=== PATIENT | male | born 1950 | race African-American/Black ===

== ENCOUNTER 2016-08-15 12:12 | Inpatient (IN) | payer OTHER ==
[~2016-08-15] VITALS: Ht 177.8 cm; Wt 90.0 kg
[~2016-08-15 12:12] MED LIST: ASPI-449 PO; SIMV-13 PO
[2016-08-15 13:11] LABS: Hemoglobin 16.1 g/dL (13.5-17.5); Mean Corpuscular Hemoglobin 33.6 pg (28.0-32.0); Mean Corpuscular Hgb Conc. 33.6 g/dL (32.0-36.0); Mean Corpuscular Volume 100.1 fL (80.0-100.0); Mean Platelet Volume 8.8 fL (7.4-10.4); Platelet Count (auto) 139 10^3/uL (140-450); Red Cell Distribution Width 12.8 % (11.6-16.0); SUSPECT VIEW TRANSMISSION; White Blood Cell 12.7 10^3/uL (4.4-10.8)
[2016-08-15 13:16] LABS: Metamyelocytes % 0; Myelocytes % 0; Promyelocytes % 0; Reactive Lymphocytes 0
[2016-08-15] MEDS ORDERED: SODIUM CHLORIDE 0.9% 1,000 ML IVB ONE (13:29)
[2016-08-15] MEDS ORDERED: ONDANSETRON HCL 4 MG/2 ML VIAL IV ONE (13:30)
[2016-08-15 13:34] LABS: Albumin 3.2 g/dL (3.4-5.0); BUN/Creatinine Ratio 18.5; Bilirubin, Total 2.6 mg/dL (0.2-1.0); Calcium 8.3 mg/dL (8.5-10.1); Potassium 3.8 mmol/L (3.5-5.1); Total Protein 7.1 g/dL (6.4-8.2)
[2016-08-15 13:48] LABS: Giant Platelets Few; Platelet Estimate Decreased
[2016-08-15 14:07] LABS: Magnesium 2.2 mg/dL (1.6-2.6)
[2016-08-15 14:25] LABS: INR 1.03 (0.9-1.15); Prothrombin Time 11.1 sec (9.37-12.3)
[2016-08-15 15:36] LABS: Urine Bilirubin Negative (Negative); Urine Color Yellow (Yellow); Urine Glucose Normal (Normal); Urine Nitrite Negative (Negative); Urine RBC <1 /hpf (0 - 3); Urine pH 5.5 (5.0-8.0)
[2016-08-15 15:40] LABS: Urine Blood 1+ /uL (Negative); Urine Ketone 1+ (Negative)
[2016-08-15] MEDS ORDERED: TEMAZEPAM 15 MG CAP PO PRN (18:30)
[2016-08-15] MEDS ORDERED: HYDROcodone-ACET 5/325MG TAB PO PRN (18:30)
[2016-08-15] MEDS ORDERED: SODIUM CHLORIDE 0.9% 2,000 ML IV ONE (18:30)
[2016-08-15] MEDS ORDERED: MORPHINE SULF INJ 2 MG/ML SYRINGE 1ML IV PRN ×2 (18:30)
[2016-08-15] MEDS ORDERED: cefTRIAXone 1GM/50ML D5W 50 ML IV ONE (18:30)
[2016-08-15] MEDS ORDERED: NITROGLYCERIN 0.4 MG SL TAB SL PRN (18:30)
[2016-08-15] MEDS ORDERED: PROCHLORPERAZINE EDISYLATE 5 MG/ML 2ML VIAL IV PRN (18:30)
[2016-08-15] MEDS ORDERED: LORazepam 0.5 MG TAB PO PRN (18:30)
[2016-08-15] MEDS ORDERED: ACETAMINOPHEN 500 MG TAB PO PRN (18:30)
[2016-08-15] MEDS: FAMOTIDINE (10MG/ML) 2ML VL IV SCH (19:02)
[2016-08-15] MEDS: SODIUM CHLORIDE 0.9% 1,000 ML IV SCH (19:50)
[2016-08-15] MEDS: metroNIDAZOLE 500MG/100ML 100 ML IV SCH (20:00)
[2016-08-16] MEDS: metroNIDAZOLE 500MG/100ML 100 ML IV SCH ×4 (02:21→21:38)
[2016-08-16] MEDS: SODIUM CHLORIDE 0.9% 1,000 ML IV SCH ×4 (03:39→21:35)
[2016-08-16 04:06] LABS: Hematocrit 40.5 % (41.0-53.0); Hemoglobin 13.7 g/dL (13.5-17.5); Mean Corpuscular Hemoglobin 33.6 pg (28.0-32.0); Mean Corpuscular Hgb Conc. 33.7 g/dL (32.0-36.0); Mean Corpuscular Volume 99.7 fL (80.0-100.0); Mean Platelet Volume 9.1 fL (7.4-10.4); Platelet Count (auto) 131 10^3/uL (140-450); Red Cell Distribution Width 12.5 % (11.6-16.0); SUSPECT VIEW TRANSMISSION; White Blood Cell 15.5 10^3/uL (4.4-10.8)
[2016-08-16 04:13] LABS: Metamyelocytes % 0; Myelocytes % 0; Promyelocytes % 0; Reactive Lymphocytes 0
[2016-08-16 04:46] LABS: Albumin 2.5 g/dL (3.4-5.0); BUN/Creatinine Ratio 17.8; Bilirubin, Total 2.1 mg/dL (0.2-1.0); Calcium 7.2 mg/dL (8.5-10.1); Potassium 3.3 mmol/L (3.5-5.1); Total Protein 5.5 g/dL (6.4-8.2)
[2016-08-16 06:44] LABS: Platelet Estimate Decreased
[2016-08-16] MEDS: FAMOTIDINE (10MG/ML) 2ML VL IV SCH ×2 (06:56→18:48)
[2016-08-16] MEDS: cefTRIAXone 1GM/50ML D5W 50 ML IV SCH (08:39)
[2016-08-16] MEDS: ENOXAPARIN SOD 40 MG/0.4 ML SYRINGE SC SCH (10:03)
[2016-08-16] MEDS ORDERED: POTASSIUM CHLORIDE 20 MEQ, LIDOCAINE 1% (LOCAL ANESTH.) 2 ML in SODIUM CHL 0.9% 100 ML IV ONE (19:30)
[2016-08-16] MEDS ORDERED: POTASSIUM CHL 20MEQ/100ML 100 ML IV ONE (19:48)
[2016-08-16 23:54] VITALS: BP 90/41
[2016-08-17] VITALS (7 sets, daily range): BP systolic 89–112; BP diastolic 41–68
[2016-08-17] MEDS: metroNIDAZOLE 500MG/100ML 100 ML IV SCH ×2 (02:32→08:25)
[2016-08-17] MEDS: SODIUM CHLORIDE 0.9% 1,000 ML IV SCH (03:39)
[2016-08-17] MEDS: FAMOTIDINE (10MG/ML) 2ML VL IV SCH (05:19)
[2016-08-17 06:51] LABS: Hematocrit 35.6 % (41.0-53.0); Mean Corpuscular Hemoglobin 33.6 pg (28.0-32.0); Mean Corpuscular Hgb Conc. 33.7 g/dL (32.0-36.0); Mean Corpuscular Volume 99.8 fL (80.0-100.0); Mean Platelet Volume 9.2 fL (7.4-10.4); Platelet Count (auto) 144 10^3/uL (140-450); Red Cell Distribution Width 12.9 % (11.6-16.0); SUSPECT VIEW TRANSMISSION; White Blood Cell 15.4 10^3/uL (4.4-10.8)
[2016-08-17 06:59] LABS: Metamyelocytes % 0; Myelocytes % 0; Promyelocytes % 0; Reactive Lymphocytes 0
[2016-08-17 07:02] LABS: Potassium 3.6 mmol/L (3.5-5.1)
[2016-08-17 07:13] LABS: Albumin 2.2 g/dL (3.4-5.0); BUN/Creatinine Ratio 11.4; Bilirubin, Total 1.1 mg/dL (0.2-1.0); Calcium 7.3 mg/dL (8.5-10.1); Total Protein 5.1 g/dL (6.4-8.2)
[2016-08-17 08:05] LABS: Platelet Estimate Adequate; RBC Morphology Normal
[2016-08-17] MEDS: cefTRIAXone 1GM/50ML D5W 50 ML IV SCH (09:50)
[2016-08-17] MEDS: ENOXAPARIN SOD 40 MG/0.4 ML SYRINGE SC SCH (09:50)
[2016-08-18 05:37] LABS: Basophils # (auto) 0 uL; Eosinophils # (auto) 0.5 uL; Eosinophils % (auto) 5.2 % (0.0-7.0); Hematocrit 35.9 % (41.0-53.0); Lymphocytes # (auto) 1.2 uL; Lymphocytes % (auto) 11.3 % (10.0-50.0); Mean Corpuscular Hemoglobin 33.8 pg (28.0-32.0); Mean Corpuscular Hgb Conc. 33.5 g/dL (32.0-36.0); Mean Corpuscular Volume 100.9 fL (80.0-100.0); Mean Platelet Volume 8.9 fL (7.4-10.4); Monocytes # (auto) 0.8 uL; Monocytes % (auto) 7.9 % (0.0-12.0); Neutrophils # (auto) 7.9 uL; Neutrophils % (auto) 75.6 % (37.0-80.0); Platelet Count (auto) 193 10^3/uL (140-450); Red Cell Distribution Width 12.8 % (11.6-16.0); White Blood Cell 10.5 10^3/uL (4.4-10.8)
[2016-08-18 05:39] LABS: BUN/Creatinine Ratio 10.6; Calcium 7.6 mg/dL (8.5-10.1); Potassium 3.6 mmol/L (3.5-5.1)
[2016-08-18 05:41] LABS: Bilirubin, Total 0.7 mg/dL (0.2-1.0)
[2016-08-18 09:00] VITALS: BP 110/57
[2016-08-18 19:06] LABS: Sjogren's Anti-SS-A Antibody <0.2 AI (0.0-0.9)
== END 2016-08-18 11:15 | disposition home or self-care (01) | DRG 392 ==
LOC: ER 12:12 → TELE 12:13 → DOU IN ICU 08-16 23:17 → TELE-WESTW 08-17 14:25 → WEST WING 08-17 23:46
PROVIDERS: ADMIT Internal Medicine; ATTEND Internal Medicine
DX: K52.9 Noninfective gastroenteritis and colitis, unspecified (principal); N17.9 Acute kidney failure, unspecified; I95.9 Hypotension, unspecified; E86.0 Dehydration; E78.5 Hyperlipidemia, unspecified; F17.210 Nicotine dependence, cigarettes, uncomplicated; I25.10 Atherosclerotic heart disease of native coronary artery without angina pectoris; R21 Rash and other nonspecific skin eruption; D69.6 Thrombocytopenia, unspecified; K80.20 Calculus of gallbladder without cholecystitis without obstruction; R19.7 Diarrhea, unspecified; B19.20 Unspecified viral hepatitis C without hepatic coma; N18.9 Chronic kidney disease, unspecified; I12.9 Hypertensive chronic kidney disease with stage 1 through stage 4 chronic kidney disease, or unspecified chronic kidney disease; Z82.49 Family history of ischemic heart disease and other diseases of the circulatory system; Z83.3 Family history of diabetes mellitus; Z98.61 Coronary angioplasty status; I25.2 Old myocardial infarction; Z84.1 Family history of disorders of kidney and ureter; Z82.0 Family history of epilepsy and other diseases of the nervous system
CPT/HCPCS: 36415; 71010; 74176; 76705; 80048; 80053; 80061; 80074; 81001; 82150; 82247; 83516; 83690; 83735; 84443; 84550; 85007; 85025; 85027; 85610; 85652; 85730; 86141; 86225; 86235; 86703; 87400; 93005; 94761; 96361; 96374; J0696; J2001; J2405; J3480; J3490

== ENCOUNTER 2016-12-26 11:58 | Inpatient (IN) | payer OTHER ==
[~2016-12-26] VITALS: Ht 177.8 cm; Wt 95.3 kg
[2016-12-26] MEDS ORDERED: SODIUM CHLORIDE 0.9% 1,000 ML IV ONE (12:09)
[2016-12-26] MEDS ORDERED: LORazepam 2MG/ML-1ML VIAL IV ONE (12:15)
[2016-12-26] MEDS ORDERED: ONDANSETRON HCL 4 MG/2 ML VIAL IV ONE (12:15)
[2016-12-26 12:44] LABS: CONDITION Y; Hematocrit 46.8 % (41.0-53.0); Hemoglobin 16.1 g/dL (13.5-17.5); Mean Corpuscular Hemoglobin 34.4 pg (28.0-32.0); Mean Corpuscular Hgb Conc. 34.4 g/dL (32.0-36.0); Mean Corpuscular Volume 100.1 fL (80.0-100.0); Mean Platelet Volume 8.8 fL (7.4-10.4); Platelet Count (auto) 139 10^3/uL (140-450); Red Cell Distribution Width 12.5 % (11.6-16.0); SUSPECT SEE PRINTOUT; White Blood Cell 10.5 10^3/uL (4.4-10.8)
[2016-12-26 12:50] LABS: Metamyelocytes % 0; Myelocytes % 0; Promyelocytes % 0; Reactive Lymphocytes 0
[2016-12-26 13:00] LABS: Albumin 3.1 g/dL (3.4-5.0); BUN/Creatinine Ratio 20.5; Potassium 3.7 mmol/L (3.5-5.1)
[2016-12-26 13:03] LABS: Bilirubin, Total 2.5 mg/dL (0.2-1.0); Platelet Estimate Decreased; Total Protein 6.7 g/dL (6.4-8.2)
[2016-12-26] MEDS ORDERED: ACETAMINOPHEN 500 MG TAB PO PRN (14:00)
[2016-12-26] MEDS ORDERED: PROMETHAZINE HCL 25 MG/ML 1ML IV PRN (14:00)
[2016-12-26] MEDS ORDERED: TEMAZEPAM 15 MG CAP PO PRN (14:00)
[2016-12-26] MEDS ORDERED: LORazepam 0.5 MG TAB PO PRN (14:00)
[2016-12-26] MEDS ORDERED: MORPHINE SULF INJ 2 MG/ML SYRINGE 1ML IV PRN (14:00)
[2016-12-26] MEDS ORDERED: HYDROcodone-ACET 5/325MG TAB PO PRN (14:00)
[2016-12-26] MEDS ORDERED: MORPHINE SULFATE 4 MG/ML SYRG IV PRN (14:00)
[2016-12-26] MEDS ORDERED: NITROGLYCERIN 0.4 MG SL TAB SL PRN (14:00)
[2016-12-26] MEDS: SODIUM CHLORIDE 0.9% 1,000 ML IV SCH (14:25)
[2016-12-26] MEDS: PANTOPRAZOLE 40 MG TAB PO SCH (14:25)
[2016-12-26] MEDS: ENOXAPARIN SOD 40 MG/0.4 ML SYRINGE SC SCH (14:26)
[2016-12-26 14:29] LABS: Amylase 51 U/L (25-115)
[2016-12-26 15:03] VITALS: BP 72/49
[2016-12-26 15:12] VITALS: BP 100/56
[2016-12-26 15:32] VITALS: BP 72/49
[2016-12-26] MEDS ORDERED: ATOR20TA50 PO (15:53)
[2016-12-26] MEDS: ATORVASTATIN 20 MG TAB PO SCH (21:39)
[2016-12-26 22:00] VITALS: BP 102/56
[2016-12-26 23:45] LABS: Urine Bilirubin Negative (Negative); Urine Color Yellow (Yellow); Urine Glucose Normal (Normal); Urine Ketone Negative (Negative); Urine Mucus FEW (None Seen); Urine Nitrite Negative (Negative); Urine RBC 2 /hpf (0 - 3); Urine Squamous Epithelial Cell FEW /hpf (<5)
[2016-12-26 23:54] LABS: Urine Blood 1+ /uL (Negative)
[2016-12-27] MEDS: SODIUM CHLORIDE 0.9% 1,000 ML IV SCH ×3 (00:05→21:47)
[2016-12-27 05:00] VITALS: BP 101/53
[2016-12-27 05:36] LABS: Basophils # (auto) 0 uL; CONDITION Y; Eosinophils # (auto) 0.7 uL; Eosinophils % (auto) 5.5 % (0.0-7.0); Hematocrit 41.3 % (41.0-53.0); Lymphocytes % (auto) 7.7 % (10.0-50.0); Mean Corpuscular Hemoglobin 34.1 pg (28.0-32.0); Mean Corpuscular Hgb Conc. 33.9 g/dL (32.0-36.0); Mean Corpuscular Volume 100.6 fL (80.0-100.0); Mean Platelet Volume 9.2 fL (7.4-10.4); Monocytes # (auto) 0.5 uL; Monocytes % (auto) 4.2 % (0.0-12.0); Neutrophils # (auto) 10.3 uL; Neutrophils % (auto) 82.6 % (37.0-80.0); Platelet Count (auto) 129 10^3/uL (140-450); White Blood Cell 12.5 10^3/uL (4.4-10.8)
[2016-12-27 05:54] LABS: Albumin 2.5 g/dL (3.4-5.0); Potassium 3.5 mmol/L (3.5-5.1)
[2016-12-27 05:57] LABS: BUN/Creatinine Ratio 17.6; Calcium 7.4 mg/dL (8.5-10.1)
[2016-12-27 05:59] LABS: Bilirubin, Total 1.7 mg/dL (0.2-1.0); Total Protein 5.7 g/dL (6.4-8.2)
[2016-12-27 09:10] VITALS: BP 95/54
[2016-12-27] MEDS: cefTRIAXone 1GM/50ML D5W 50 ML IV SCH (09:37)
[2016-12-27] MEDS: ASPirin 81 mg TAB PO SCH (09:38)
[2016-12-27] MEDS: PANTOPRAZOLE 40 MG TAB PO SCH (09:39)
[2016-12-27] MEDS: ENOXAPARIN SOD 40 MG/0.4 ML SYRINGE SC SCH (09:39)
[2016-12-27] MEDS ORDERED: diphenhdrAMINE HCL 25 MG CAP PO PRN (10:00)
[2016-12-27] MEDS ORDERED: FAMOTIDINE (10MG/ML) 2ML VL IV ONE (11:45)
[2016-12-27 13:00] VITALS: BP 89/54
[2016-12-27 16:50] VITALS: BP 88/51
[2016-12-27] MEDS: ATORVASTATIN 20 MG TAB PO SCH (21:47)
[2016-12-27] MEDS: FAMOTIDINE (10MG/ML) 2ML VL IV SCH (21:48)
[2016-12-27 22:00] VITALS: BP 104/61
[2016-12-28 05:00] VITALS: BP 90/46
[2016-12-28 05:46] LABS: Basophils # (auto) 0 uL; Basophils % (auto) 0.1 % (0.0-2.0); CONDITION Y; Eosinophils # (auto) 0.6 uL; Eosinophils % (auto) 3.8 % (0.0-7.0); Hematocrit 37.3 % (41.0-53.0); Hemoglobin 12.8 g/dL (13.5-17.5); Lymphocytes % (auto) 6.1 % (10.0-50.0); Mean Corpuscular Hemoglobin 34.3 pg (28.0-32.0); Mean Corpuscular Hgb Conc. 34.3 g/dL (32.0-36.0); Mean Corpuscular Volume 99.9 fL (80.0-100.0); Mean Platelet Volume 9.1 fL (7.4-10.4); Monocytes # (auto) 0.4 uL; Monocytes % (auto) 2.4 % (0.0-12.0); Neutrophils # (auto) 13.8 uL; Neutrophils % (auto) 87.6 % (37.0-80.0); Platelet Count (auto) 143 10^3/uL (140-450); Red Cell Distribution Width 12.9 % (11.6-16.0); White Blood Cell 15.8 10^3/uL (4.4-10.8)
[2016-12-28 06:08] LABS: Albumin 2.4 g/dL (3.4-5.0); Calcium 7.5 mg/dL (8.5-10.1); Potassium 3.3 mmol/L (3.5-5.1)
[2016-12-28 06:10] LABS: Bilirubin, Total 1.6 mg/dL (0.2-1.0); Total Protein 5.3 g/dL (6.4-8.2)
[2016-12-28] MEDS: SODIUM CHLORIDE 0.9% 1,000 ML IV SCH ×3 (06:12→21:39)
[2016-12-28 09:00] VITALS: BP 100/52
[2016-12-28] MEDS: cefTRIAXone 1GM/50ML D5W 50 ML IV SCH (10:15)
[2016-12-28] MEDS: ENOXAPARIN SOD 40 MG/0.4 ML SYRINGE SC SCH (10:15)
[2016-12-28] MEDS: ASPirin 81 mg TAB PO SCH (10:15)
[2016-12-28] MEDS: FAMOTIDINE (10MG/ML) 2ML VL IV SCH ×2 (10:15→21:39)
[2016-12-28 10:32] LABS: Hepatitis B Surface Antibody Positive
[2016-12-28 11:12] LABS: Temperature: 23.3 C (20.0-25.0)
[2016-12-28 13:00] VITALS: BP 103/50
[2016-12-28] MEDS ORDERED: POTASSIUM CHL 20 Meq TABLET PO ONE (14:00)
[2016-12-28 15:38] LABS: INR 1.06 (0.9-1.15); Partial Thromboplastin Time 31.4 sec (22.64-33.71); Prothrombin Time 11.6 sec (9.37-12.3)
[2016-12-28 16:50] VITALS: BP 111/65
[2016-12-28] MEDS: ATORVASTATIN 20 MG TAB PO SCH (21:39)
[2016-12-28 21:59] VITALS: BP 110/64
[2016-12-29 05:40] VITALS: BP 120/63
[2016-12-29 06:09] LABS: Potassium 3.6 mmol/L (3.5-5.1)
[2016-12-29 06:16] LABS: BUN/Creatinine Ratio 9.2; Calcium 7.8 mg/dL (8.5-10.1); Magnesium 2.2 mg/dL (1.6-2.6)
[2016-12-29 06:26] LABS: Basophils # (auto) 0 uL; Basophils % (auto) 0.1 % (0.0-2.0); CONDITION Y; Eosinophils # (auto) 0.6 uL; Eosinophils % (auto) 5.7 % (0.0-7.0); Hematocrit 36.1 % (41.0-53.0); Hemoglobin 12.4 g/dL (13.5-17.5); Lymphocytes # (auto) 1.6 uL; Lymphocytes % (auto) 14.8 % (10.0-50.0); Mean Corpuscular Hemoglobin 34.6 pg (28.0-32.0); Mean Corpuscular Hgb Conc. 34.3 g/dL (32.0-36.0); Mean Corpuscular Volume 100.9 fL (80.0-100.0); Mean Platelet Volume 9.1 fL (7.4-10.4); Monocytes % (auto) 9.2 % (0.0-12.0); Neutrophils # (auto) 7.5 uL; Neutrophils % (auto) 70.2 % (37.0-80.0); Platelet Count (auto) 194 10^3/uL (140-450); Red Cell Distribution Width 13.1 % (11.6-16.0); White Blood Cell 10.6 10^3/uL (4.4-10.8)
[2016-12-29] MEDS: SODIUM CHLORIDE 0.9% 1,000 ML IV SCH ×2 (06:32→21:31)
[2016-12-29] MEDS ORDERED: ETOMIDATE (2MG/ML) 20ML VIAL IV ONE (07:57)
[2016-12-29] MEDS ORDERED: SODIUM CHLORIDE LOCK 20 ML ONE (07:57)
[2016-12-29] MEDS ORDERED: fentaNYL CITRATE 100 MCG/2 ML VL ONE (07:57)
[2016-12-29] MEDS ORDERED: ROCURONIUM 10MG/ML 10ML VIAL IV ONE (07:57)
[2016-12-29] MEDS ORDERED: MIDAZOLAM HCL 1MG/1ML-2 ML VIAL ONE (07:57)
[2016-12-29] MEDS ORDERED: MEPERIDINE HCL (50 MG/ML) 1 ML VIAL ONE (07:57)
[2016-12-29] MEDS ORDERED: GLYCOPYRROLATE 0.2 MG/ML 1ML VIAL ONE (07:57)
[2016-12-29] MEDS ORDERED: NEOSTIGMINE 1 MG/ML INJ (10mg/10ML VIAL) ONE (07:57)
[2016-12-29] MEDS ORDERED: SUCCINYLCHOLINE CHLORIDE 20 MG/ML 10ML VIAL IV ONE (08:16)
[2016-12-29] MEDS ORDERED: ceFAZolin 1GM/50ML D5W 50 ML IV ONE (08:16)
[2016-12-29 08:55] VITALS: BP 127/48
[2016-12-29] MEDS ORDERED: HYDROmorphone HCL 2 MG/ML VL IV PRN (09:30)
[2016-12-29] MEDS ORDERED: METOCLOPRAMIDE HCL 5MG/ml INJ 2ml VIAL IV ONE (09:30)
[2016-12-29] MEDS: ENOXAPARIN SOD 40 MG/0.4 ML SYRINGE SC SCH (10:00)
[2016-12-29] MEDS: cefTRIAXone 1GM/50ML D5W 50 ML IV SCH (12:23)
[2016-12-29] MEDS: ASPirin 81 mg TAB PO SCH (12:23)
[2016-12-29] MEDS: FAMOTIDINE (10MG/ML) 2ML VL IV SCH ×2 (12:23→21:27)
[2016-12-29 13:00] VITALS: BP 127/64
[2016-12-29 15:32] LABS: Cholesterol 76 mg/dL (< 200)
[2016-12-29 17:02] VITALS: BP 129/77
[2016-12-29 17:51] LABS: HDL Cholesterol 19 mg/dL (40-59); LDL Cholesterol 44 mg/dL (< 100); Triglycerides 145 mg/dL (< 150)
[2016-12-29] MEDS: ATORVASTATIN 20 MG TAB PO SCH (21:27)
[2016-12-29 21:50] VITALS: BP 109/58
[2016-12-30 05:15] VITALS: BP 101/67
[2016-12-30 05:47] LABS: Basophils # (auto) 0 uL; Basophils % (auto) 0.1 % (0.0-2.0); CONDITION Y; Eosinophils # (auto) 0 uL; Eosinophils % (auto) 0.3 % (0.0-7.0); Hematocrit 34.7 % (41.0-53.0); Hemoglobin 11.8 g/dL (13.5-17.5); Lymphocytes # (auto) 1.6 uL; Lymphocytes % (auto) 10.3 % (10.0-50.0); Mean Corpuscular Hemoglobin 34.3 pg (28.0-32.0); Mean Corpuscular Volume 100.8 fL (80.0-100.0); Mean Platelet Volume 8.8 fL (7.4-10.4); Monocytes # (auto) 1.4 uL; Neutrophils # (auto) 12.7 uL; Neutrophils % (auto) 80.3 % (37.0-80.0); Platelet Count (auto) 237 10^3/uL (140-450); Red Cell Distribution Width 12.9 % (11.6-16.0); White Blood Cell 15.8 10^3/uL (4.4-10.8)
[2016-12-30 06:35] LABS: Calcium 7.9 mg/dL (8.5-10.1); Potassium 3.7 mmol/L (3.5-5.1)
[2016-12-30 07:24] LABS: BUN/Creatinine Ratio 11.1
[2016-12-30 09:00] VITALS: BP 92/51
[2016-12-30] MEDS: SODIUM CHLORIDE 0.9% 1,000 ML IV SCH ×2 (09:21→17:26)
[2016-12-30] MEDS: FAMOTIDINE (10MG/ML) 2ML VL IV SCH ×2 (09:21→22:01)
[2016-12-30] MEDS: cefTRIAXone 1GM/50ML D5W 50 ML IV SCH (09:21)
[2016-12-30] MEDS: ASPirin 81 mg TAB PO SCH (09:21)
[2016-12-30] MEDS: ENOXAPARIN SOD 40 MG/0.4 ML SYRINGE SC SCH (09:21)
[2016-12-30 12:14] LABS: Basophils # (auto) 0 uL; Basophils % (auto) 0.3 % (0.0-2.0); CONDITION Y; DEFINITIVE SEE PRINTOUT; Eosinophils # (auto) 0.1 uL; Eosinophils % (auto) 0.8 % (0.0-7.0); Hemoglobin 12.7 g/dL (13.5-17.5); Lymphocytes # (auto) 2.8 uL; Lymphocytes % (auto) 19.3 % (10.0-50.0); Mean Corpuscular Hemoglobin 34.2 pg (28.0-32.0); Mean Corpuscular Hgb Conc. 34.3 g/dL (32.0-36.0); Mean Corpuscular Volume 99.9 fL (80.0-100.0); Monocytes # (auto) 1.6 uL; Monocytes % (auto) 11.2 % (0.0-12.0); Neutrophils # (auto) 9.8 uL; Neutrophils % (auto) 68.4 % (37.0-80.0); Platelet Count (auto) 268 10^3/uL (140-450); Red Cell Distribution Width 13.3 % (11.6-16.0); White Blood Cell 14.4 10^3/uL (4.4-10.8)
[2016-12-30 13:00] VITALS: BP 100/61
[2016-12-30] MEDS ORDERED: METR500T PO (13:16)
[2016-12-30] MEDS ORDERED: LEVO500T21 PO (13:16)
[2016-12-30] MEDS ORDERED: metroNIDAZOLE 500MG/100ML 100 ML IV ONE (14:30)
[2016-12-30] MEDS ORDERED: LEVOFLOXACIN 500MG 100 ML IV ONE (14:30)
[2016-12-30 17:00] VITALS: BP 101/71
[2016-12-30 20:00] VITALS: BP 122/58
[2016-12-30 22:00] VITALS: BP 122/58
[2016-12-30] MEDS: metroNIDAZOLE 500MG/100ML 100 ML IV SCH (22:00)
[2016-12-30] MEDS: ATORVASTATIN 20 MG TAB PO SCH (22:01)
[2016-12-31 05:00] VITALS: BP 109/60
[2016-12-31] MEDS: metroNIDAZOLE 500MG/100ML 100 ML IV SCH ×2 (05:24→14:04)
[2016-12-31] MEDS: SODIUM CHLORIDE 0.9% 1,000 ML IV SCH ×2 (05:24→13:56)
[2016-12-31 05:57] LABS: Basophils # (auto) 0 uL; Basophils % (auto) 0.2 % (0.0-2.0); CONDITION Y; Eosinophils # (auto) 0.1 uL; Eosinophils % (auto) 1.8 % (0.0-7.0); Hematocrit 35.1 % (41.0-53.0); Hemoglobin 11.9 g/dL (13.5-17.5); Lymphocytes % (auto) 36.5 % (10.0-50.0); Mean Corpuscular Hemoglobin 34.2 pg (28.0-32.0); Mean Corpuscular Hgb Conc. 33.8 g/dL (32.0-36.0); Mean Corpuscular Volume 101.4 fL (80.0-100.0); Mean Platelet Volume 8.8 fL (7.4-10.4); Monocytes % (auto) 12.5 % (0.0-12.0); Neutrophils # (auto) 4.1 uL; Platelet Count (auto) 281 10^3/uL (140-450); Red Cell Distribution Width 13.2 % (11.6-16.0); White Blood Cell 8.3 10^3/uL (4.4-10.8)
[2016-12-31 06:06] LABS: BUN/Creatinine Ratio 10.5; Calcium 7.5 mg/dL (8.5-10.1); Potassium 3.6 mmol/L (3.5-5.1)
[2016-12-31 06:11] LABS: Bilirubin, Total 0.3 mg/dL (0.2-1.0)
[2016-12-31 08:00] VITALS: BP 131/62
[2016-12-31 09:00] VITALS: BP 131/62
[2016-12-31] MEDS ORDERED: LEVOFLOXACIN 500MG 100 ML IV SCH (10:00)
[2016-12-31] MEDS: FAMOTIDINE (10MG/ML) 2ML VL IV SCH (10:21)
[2016-12-31] MEDS: ENOXAPARIN SOD 40 MG/0.4 ML SYRINGE SC SCH (10:22)
[2016-12-31] MEDS: ASPirin 81 mg TAB PO SCH (10:22)
[2016-12-31 13:00] VITALS: BP 128/69
[2016-12-31 14:20] VITALS: BP 124/64
[2016-12-31 16:51] VITALS: BP 124/64
== END 2016-12-31 18:40 | disposition home or self-care (01) | DRG 356 ==
LOC: ER 12:03 → TELE 12:04 → TELE-E-ADS 15:19 → TELE-WESTW 17:04
PROVIDERS: ADMIT Internal Medicine; ATTEND Internal Medicine
PROC: 0FT44ZZ Resection of Gallbladder, Percutaneous Endoscopic Approach (ICD-10-PCS; principal; 2016-12-29 08:26)
DX: A08.4 Viral intestinal infection, unspecified (principal); N17.0 Acute kidney failure with tubular necrosis; K80.10 Calculus of gallbladder with chronic cholecystitis without obstruction; E87.1 Hypo-osmolality and hyponatremia; N39.0 Urinary tract infection, site not specified; D69.6 Thrombocytopenia, unspecified; N18.3 Chronic kidney disease, stage 3 (moderate); I12.9 Hypertensive chronic kidney disease with stage 1 through stage 4 chronic kidney disease, or unspecified chronic kidney disease; E78.5 Hyperlipidemia, unspecified; E87.6 Hypokalemia; F17.210 Nicotine dependence, cigarettes, uncomplicated; F41.9 Anxiety disorder, unspecified; G47.00 Insomnia, unspecified; B19.20 Unspecified viral hepatitis C without hepatic coma; R21 Rash and other nonspecific skin eruption; G40.909 Epilepsy, unspecified, not intractable, without status epilepticus; I25.10 Atherosclerotic heart disease of native coronary artery without angina pectoris; I25.2 Old myocardial infarction; Z79.82 Long term (current) use of aspirin; Z82.49 Family history of ischemic heart disease and other diseases of the circulatory system; Z83.3 Family history of diabetes mellitus; Z98.61 Coronary angioplasty status
CPT/HCPCS: 36415; 71010; 71275; 76705; 78226; 80048; 80053; 80061; 80307; 81001; 82150; 82247; 82378; 82550; 82607; 82746; 83605; 83690; 83735; 84484; 85007; 85025; 85027; 85379; 85610; 85652; 85730; 86704; 86706; 86708; 86803; 86850; 86900; 86901; 87086; 87340; 93005; 93306; 94761; 96361; 96374; 96375; J0330; J0690; J0696; J1956; J2250; J2405; J3490

== ENCOUNTER 2018-10-31 09:24 | Inpatient (IN) | payer OTHER, MEDICARE ==
[~2018-10-31] VITALS: Ht 177.8 cm; Wt 95.6 kg
[~2018-10-31 09:24] MED LIST changes: +ATOR20TA50 PO; +LEVO500T21 PO; +METR500T PO
[2018-10-31] MEDS ORDERED: SODIUM CHLORIDE 0.9% 1,000 ML IV ONE (09:43)
[2018-10-31 10:29] LABS: Albumin 3.8 g/dL (3.4-5.0); BUN/Creatinine Ratio 11.2; Calcium 8.4 mg/dL (8.5-10.1); Potassium 3.7 mmol/L (3.5-5.1)
[2018-10-31 10:37] LABS: Basophils # (auto) 0 uL; Basophils % (auto) 0.3 % (0.0-2.0); Eosinophils # (auto) 0 uL; Mean Corpuscular Volume 100.2 fL (80.0-100.0); Nucleated Red Blood Cells % 0.1 %
[2018-10-31 10:38] LABS: Bilirubin, Total 2.1 mg/dL (0.2-1.0)
[2018-10-31 10:40] LABS: Eosinophils % (auto) 0.2 % (0.0-7.0); Hematocrit 53.8 % (41.0-53.0); Hemoglobin 18.7 g/dL (13.5-17.5); Lymphocytes # (auto) 0.6 uL; Lymphocytes % (auto) 5.4 % (10.0-50.0); Mean Corpuscular Hemoglobin 34.9 pg (28.0-32.0); Mean Corpuscular Hgb Conc. 34.9 g/dL (32.0-36.0); Monocytes # (auto) 0.4 uL; Monocytes % (auto) 3.6 % (0.0-12.0); Neutrophils # (auto) 9.7 uL; Neutrophils % (auto) 90.5 % (37.0-80.0); Platelet Count (auto) 149 10^3/uL (140-450); Red Blood Cells 5.37 10^6/uL (4.5-5.90); Red Cell Distribution Width 12.9 % (11.8-14.3); White Blood Cell 10.7 10^3/uL (4.4-10.8)
[2018-10-31] MEDS ORDERED: NITROGLYCERIN 0.4MG/HR TOPICAL PATCH TD ONE (12:45)
[2018-10-31] MEDS ORDERED: NITROGLYCERIN 0.4 MG SL TAB SL PRN (12:45)
[2018-10-31] MEDS ORDERED: hydrALAZINE HCL 20 MG/ML VL IV PRN (12:45)
[2018-10-31] MEDS ORDERED: ONDANSETRON HCL 4 MG/2 ML VIAL IV PRN (12:45)
[2018-10-31] MEDS ORDERED: HYDROcodone-ACET 5/325MG TAB PO PRN (12:45)
[2018-10-31] MEDS ORDERED: MORPHINE SULF INJ 2 MG/ML SYRINGE 1ML IV PRN ×2 (12:45)
[2018-10-31] MEDS: SODIUM CHLORIDE 0.9% 1,000 ML IV SCH (13:08)
[2018-10-31 13:24] LABS: Urine Bacteria NONE SEEN /hpf (None Seen); Urine Blood 2+ /uL (Negative); Urine Mucus FEW (None Seen); Urine Specific Gravity 1.029 (1.001-1.035); Urine WBC 7 /hpf (0 - 3)
--- NOTE | 2018-10-31 16:44 | NUR ---
ARRIVED ON UNIT PATIENT ARRIVED ON UNIT ALERT AND ORIENTED X4. DENIES ANY PAIN SOB AND DISTRESS. PATIENT MADE AWARE OF UNIT, RN, VISITING HOURS, CALL LIGHT, AND POC. PATIENT VERBALIZED UNDERSTANDING. BED IS IN LOWEST LOCKED POSITION. CALL LIGHT IS WITHIN REACH WILL CONTINUE TO MONITOR
[2018-10-31 17:32] VITALS: BP 100/50
--- NOTE | 2018-10-31 19:00 | NUR ---
END OF SHIFT NOTE PATIENT IS LAYING IN BED WITH EYES CLOSED COMFORTABLY SHOWING NO S/S OF DISTRESS OR SOB. CALL LIGHT IS WITHIN REACH. BED IS IN LOWEST LOCKED POSITION. WILL ENDORSE CARE TO NOC RN
--- NOTE | 2018-10-31 19:30 | NUR ---
RECEIVED PT FROM DAY RN POC REVIEWED
--- NOTE | 2018-10-31 22:00 | NUR ---
PTS TEMP 100.8 TYLENOL GIVEN, PT CONTINUE TO HAVE DIARRHEA
[2018-10-31] MEDS: ACETAMINOPHEN 500 MG TAB PO PRN (22:02)
[2018-10-31] MEDS: ATORVASTATIN 20 MG TAB PO SCH (22:02)
[2018-10-31] MEDS: METOPROLOL TARTRATE 25 MG TAB PO SCH (22:03)
[2018-10-31 22:08] VITALS: BP 116/67
[2018-11-01] VITALS (7 sets, daily range): BP systolic 92–110; BP diastolic 54–69
--- NOTE | 2018-11-01 00:05 | NUR ---
PT UP TO BATHROOM WITH DIARRHEA HOSPITALIST PAGED FOR ORDERS
--- NOTE | 2018-11-01 00:40 | NUR ---
ORDERS RECEIVED TO COLLECT STOOL FOR CDIFF AND GIVE IMODIUM AFTER EACH LOOSE STOOL
--- NOTE | 2018-11-01 01:05 | NUR ---
PT UP TO BATHROOM INCONTINENT OF STOOL, BSC AT BEDSIDE, WAITING ON PHARMACY
[2018-11-01] MEDS: LOPERAMIDE HCL 2 MG CAP PO PRN ×3 (01:14→22:03)
--- NOTE | 2018-11-01 01:30 | NUR ---
IMODIUM GIVEN ORDERED
[2018-11-01] MEDS: SODIUM CHLORIDE 0.9% 1,000 ML IV SCH ×2 (03:27→15:25)
[2018-11-01 06:14] LABS: Basophils # (auto) 0 uL; Eosinophils # (auto) 0.1 uL; Eosinophils % (auto) 1.5 % (0.0-7.0); Monocytes # (auto) 0.3 uL; Platelet Count (auto) 105 10^3/uL (140-450)
[2018-11-01 06:17] LABS: Basophils % (auto) 0.2 % (0.0-2.0); Hematocrit 46.2 % (41.0-53.0); Hemoglobin 16.3 g/dL (13.5-17.5); Lymphocytes # (auto) 0.5 uL; Lymphocytes % (auto) 5.9 % (10.0-50.0); Mean Corpuscular Hemoglobin 35.1 pg (28.0-32.0); Mean Corpuscular Hgb Conc. 35.4 g/dL (32.0-36.0); Mean Corpuscular Volume 99.2 fL (80.0-100.0); Neutrophils # (auto) 7.3 uL; Neutrophils % (auto) 88.4 % (37.0-80.0); Nucleated Red Blood Cells % 0.1 %; Red Blood Cells 4.65 10^6/uL (4.5-5.90); Red Cell Distribution Width 12.9 % (11.8-14.3); White Blood Cell 8.3 10^3/uL (4.4-10.8)
[2018-11-01 06:27] LABS: BUN/Creatinine Ratio 18.6; Calcium 7.6 mg/dL (8.5-10.1); Potassium 3.5 mmol/L (3.5-5.1)
[2018-11-01 06:29] LABS: INR 1.18 (0.9-1.15); Partial Thromboplastin Time 32.6 sec (23.64-32.05)
--- NOTE | 2018-11-01 07:08 | NUR ---
REPORT GIVEN TO AM NURSE POC REVIEWED
--- NOTE | 2018-11-01 07:30 | NUR ---
OPENING SHIFT NOTE PATIENT AWAKE IN BED. PATIENT DENIES FEELING ANY SOB OR DISTRESS. BED IS IN LOWEST LOCKED POSITION CALL LIGHT IS WITHIN REACH. PATIENT VERBALIZED UNDERSTANDING OF DAYS POC. WILL CONTINUE TO MONITOR
[2018-11-01] MEDS: LISINOPRIL 10 MG TAB PO SCH (10:00)
[2018-11-01] MEDS ORDERED: ASPirin 81 mg TAB PO SCH (10:00)
[2018-11-01] MEDS ORDERED: PANTOPRAZOLE 40 MG/10 ML VIAL INJ IV SCH (10:00)
[2018-11-01] MEDS: NITROGLYCERIN 0.4MG/HR TOPICAL PATCH TD SCH (10:00)
[2018-11-01] MEDS ORDERED: ASPirin-EC 81 mg tab PO SCH (10:00)
[2018-11-01] MEDS: METOPROLOL TARTRATE 25 MG TAB PO SCH (10:00)
[2018-11-01] MEDS: FAMOTIDINE 20 MG TAB PO SCH (11:46)
[2018-11-01] MEDS ORDERED: ASPirin 81 mg TAB PO ONE (12:45)
[2018-11-01] MEDS: PANTOPRAZOLE 40 MG TAB PO SCH (13:20)
[2018-11-01 14:32] LABS: Cholesterol 91 mg/dL (< 200); Triglycerides 109 mg/dL (< 150)
[2018-11-01 14:34] LABS: HDL Cholesterol 26 mg/dL (40-59); LDL Cholesterol 49 mg/dL (< 100)
--- NOTE | 2018-11-01 18:36 | NUR ---
IV insertion IV access obtained, via clean sterile technique by inserting 20 gauge catheter at LEFT FOREARM after 1 attempt. IV secured properly. No trauma to site. Patient tolerated well. IV TO RIGHT AC DC USING CLEAN TECHNIQUE CATHETER INTACT, PRESSURE DRESSING APPLIED PATIENT TOLERATED WELL.
--- NOTE | 2018-11-01 18:46 | NUR ---
END OF SHIFT NOTE PATIENT LAYING IN BED TALKING TO NEIGHBOR IN B BED. SHOWING NO S.S OF DISTRESS OR SOB. BED IS IN LOWEST LOCKED POSITION CALL LIGHT WITHIN REACH WILL ENDORSE CARE TO NOC RN
--- NOTE | 2018-11-01 19:53 | NUR ---
received report from day rn poc reviewed
[2018-11-01] MEDS: ACETAMINOPHEN 500 MG TAB PO PRN (22:02)
[2018-11-01] MEDS: ATORVASTATIN 20 MG TAB PO SCH (22:03)
--- NOTE | 2018-11-02 04:19 | NUR ---
resting with eyes closed call light within reach
[2018-11-02 05:00] VITALS: BP 119/61
[2018-11-02] MEDS: SODIUM CHLORIDE 0.9% 1,000 ML IV SCH ×3 (06:24→19:32)
--- NOTE | 2018-11-02 07:16 | NUR ---
report given to am nurse poc reviewed
[2018-11-02 09:00] VITALS: BP 90/52
[2018-11-02] MEDS: LISINOPRIL 10 MG TAB PO SCH (10:30)
[2018-11-02] MEDS: NITROGLYCERIN 0.4MG/HR TOPICAL PATCH TD SCH (10:30)
[2018-11-02] MEDS ORDERED: ASPirin 81 mg TAB PO SCH (10:45)
[2018-11-02] MEDS: PANTOPRAZOLE 40 MG TAB PO SCH (10:56)
[2018-11-02] MEDS: ASPirin 81 mg TAB PO SCH (10:56)
[2018-11-02] MEDS: FAMOTIDINE 20 MG TAB PO SCH (10:56)
--- NOTE | 2018-11-02 11:30 | NUR ---
SPOKE WITH THANH, CARDIOLOGY LIVESTOCK SPECULATOR PER MD DANIELLE REQUEST, INFORMED THANH PATIENT WILL NOT BE DISCHARGED TODAY DUE TO LOW BLOOD PRESSURE. NO NEW ORDERS GIVEN. WILL INFORM MD DANIELLE.
--- NOTE | 2018-11-02 12:53 | NUR ---
SPOKE WITH MD DANIELLE- NEW ORDERS GIVEN READ BACK AND VERIFIED. SEE ORDERS. WILL FOLLOW THROUGH WITH NEW ORDERS.
[2018-11-02 13:00] VITALS: BP 92/58
[2018-11-02 16:52] VITALS: BP 105/55
--- NOTE | 2018-11-02 19:18 | NUR ---
CLOSING NOTE ENDORSED CARE TO SYSTEM ADMINISTRATION ADVISOR RN. BED IN LOW LOCK POSITION, CALL LIGHT IN REACH. NO S/S OF DISTRESS.
--- NOTE | 2018-11-02 20:00 | NUR ---
OPENING SHIFT NOTE: PATIENT RESTING IN BED. HAS NO COMPLAINTS OF PAIN OR DISCOMFORT. HE IS ON 2L NC CURRENTLY. BED IS LOCKED IN LOWEST POSITION WITH SIDE RAILS UP X2. MADE AWARE TO USE CALL LIGHT IF ASSISTANCE IS NEEDED. HE WAS ALSO UPDATED ON HIS PLAN OF CARE. WILL CONTINUE TO MONITOR.
[2018-11-02] MEDS: ATORVASTATIN 20 MG TAB PO SCH (21:56)
[2018-11-02 22:00] VITALS: BP 99/48
[2018-11-03] MEDS: SODIUM CHLORIDE 0.9% 1,000 ML IV SCH ×4 (02:23→22:07)
[2018-11-03 05:00] VITALS: BP 100/58
--- NOTE | 2018-11-03 07:45 | NUR ---
Opening Patient awake in bed, bed in lowest position, call light within reach. No distress noted at this time. Will f/u with morning assessment CXR negative ct ab 1.4 cm hypodense right renal lesion blood cult negative c diff negative UA 2 +leuks blood and protein sodium 134 inr 1.18 aptt 32.6 plt 105 troponin last 0.565 no c/o chest pain at this time, per noc nurse possible dc today will endorse all to hospitalist continuing to monitor this patient
[2018-11-03 09:00] VITALS: BP 108/55
[2018-11-03] MEDS: PANTOPRAZOLE 40 MG TAB PO SCH (09:58)
[2018-11-03] MEDS: NITROGLYCERIN 0.4MG/HR TOPICAL PATCH TD SCH (10:00)
[2018-11-03] MEDS: LISINOPRIL 10 MG TAB PO SCH (10:00)
[2018-11-03] MEDS: FAMOTIDINE 20 MG TAB PO SCH (10:00)
[2018-11-03] MEDS: ASPirin 81 mg TAB PO SCH (10:00)
--- NOTE | 2018-11-03 11:20 | NUR ---
NURSE NOTE MD rounding, suggests physical therapy consult and a possible discharge tomorrow
[2018-11-03 13:00] VITALS: BP 99/60
--- NOTE | 2018-11-03 15:30 | NUR ---
PT REPORTS THAT HE IS DONG FINE AND DOES NOT NEED P.T. INTERVENTION.
[2018-11-03 17:17] VITALS: BP 106/59
--- NOTE | 2018-11-03 20:00 | NUR ---
OPENING SHIFT NOTE: PATIENT IS RESTING IN BED. HE IS AOX4. HE IS AWARE THAT THE PLAN IS FOR HIM TO GO HOME TOMORROW. HE UNDERSTANDS HOW TO USE CALL LIGHT. BED IS LOCKED IN LOWEST POSITION WITH SIDE RAILS UP X2. WILL CONTINUE TO MONITOR.
[2018-11-03] MEDS: ATORVASTATIN 20 MG TAB PO SCH (21:40)
[2018-11-03 22:00] VITALS: BP 117/60
[2018-11-04 04:30] VITALS: BP 113/64
[2018-11-04] MEDS: SODIUM CHLORIDE 0.9% 1,000 ML IV SCH ×2 (05:27→12:34)
--- NOTE | 2018-11-04 07:45 | NUR ---
OPENING Patient awake in bed, bed in lowest position, call light within reach. No distress noted at this time. Patient noted to Physical therapy yesterday that he is able to walk independently. Talked to patient this morning and let him know to do a couple of laps around the nurses station just to be sure, he agrees. Patient also has some concerns with needed an off work doctors note, states he works long hours and will need some extra time off from work. Will relay the message to hospitalist. No no new labs drawn, no tests pending Will continue to monitor this patient and f/u with morning assessment
[2018-11-04 08:36] VITALS: BP 129/67
[2018-11-04] MEDS: PANTOPRAZOLE 40 MG TAB PO SCH (09:22)
[2018-11-04] MEDS: LISINOPRIL 10 MG TAB PO SCH (09:22)
[2018-11-04] MEDS: NITROGLYCERIN 0.4MG/HR TOPICAL PATCH TD SCH (09:22)
[2018-11-04] MEDS: ASPirin 81 mg TAB PO SCH (09:22)
[2018-11-04 11:58] VITALS: BP 129/67
[2018-11-04 13:00] VITALS: BP 142/69
== END 2018-11-04 13:20 | disposition home or self-care (01) | DRG 280 ==
LOC: ER 09:26 → TELE 12:47 → TELE-WESTW 16:51
PROVIDERS: ADMIT Nurse Practitioner Acute Care; ATTEND Family Medicine
DX: I21.A1 Myocardial infarction type 2 (principal); I40.0 Infective myocarditis; E87.1 Hypo-osmolality and hyponatremia; I25.2 Old myocardial infarction; I25.10 Atherosclerotic heart disease of native coronary artery without angina pectoris; E78.00 Pure hypercholesterolemia, unspecified; I12.9 Hypertensive chronic kidney disease with stage 1 through stage 4 chronic kidney disease, or unspecified chronic kidney disease; N18.3 Chronic kidney disease, stage 3 (moderate); E86.0 Dehydration; E78.5 Hyperlipidemia, unspecified; F17.210 Nicotine dependence, cigarettes, uncomplicated; I95.9 Hypotension, unspecified; I70.8 Atherosclerosis of other arteries; K43.9 Ventral hernia without obstruction or gangrene; E87.8 Other disorders of electrolyte and fluid balance, not elsewhere classified; Z79.82 Long term (current) use of aspirin; Z79.899 Other long term (current) drug therapy; Z90.49 Acquired absence of other specified parts of digestive tract; Z82.49 Family history of ischemic heart disease and other diseases of the circulatory system; Z82.0 Family history of epilepsy and other diseases of the nervous system; Z83.3 Family history of diabetes mellitus; Z84.1 Family history of disorders of kidney and ureter
CPT/HCPCS: 36415; 71045; 74176; 80048; 80053; 80061; 81001; 82962; 83735; 83880; 84484; 85025; 85610; 85730; 86141; 87040; 87493; 93005; 93306; 94761; 96360; 99291; G0378

== ENCOUNTER 2018-12-31 09:57 | Inpatient (IN) | payer OTHER, MEDICARE ==
[~2018-12-31] VITALS: Ht 177.8 cm; Wt 93.4 kg
[2018-12-31 10:49] LABS: Eosinophils # (auto) 0.2 uL; Lymphocytes # (auto) 0.9 uL; Monocytes # (auto) 0.4 uL
[2018-12-31 10:53] LABS: Basophils # (auto) 0 uL; Basophils % (auto) 0.4 % (0.0-2.0); Eosinophils % (auto) 2.1 % (0.0-7.0); Hematocrit 51.8 % (41.0-53.0); Hemoglobin 18.1 g/dL (13.5-17.5); Lymphocytes % (auto) 10.5 % (10.0-50.0); Mean Corpuscular Hemoglobin 34.3 pg (28.0-32.0); Mean Corpuscular Hgb Conc. 34.9 g/dL (32.0-36.0); Mean Corpuscular Volume 98.2 fL (80.0-100.0); Monocytes % (auto) 5.2 % (0.0-12.0); Neutrophils # (auto) 6.9 uL; Neutrophils % (auto) 81.8 % (37.0-80.0); Nucleated Red Blood Cells % 0.2 %; Platelet Count (auto) 159 10^3/uL (140-450); Red Blood Cells 5.28 10^6/uL (4.5-5.90); Red Cell Distribution Width 13.2 % (11.8-14.3); White Blood Cell 8.4 10^3/uL (4.4-10.8)
[2018-12-31 10:58] LABS: BUN/Creatinine Ratio 9.8; Calcium 9.1 mg/dL (8.5-10.1); Potassium 3.7 mmol/L (3.5-5.1)
[2018-12-31 11:01] LABS: Bilirubin, Total 1.8 mg/dL (0.2-1.0); Total Protein 8.1 g/dL (6.4-8.2)
[2018-12-31 11:05] LABS: Urine Bacteria FEW /hpf (None Seen); Urine Blood 1+ /uL (Negative); Urine Hyaline Cast MANY /lpf (0 - 2); Urine Mucus FEW (None Seen); Urine Specific Gravity 1.028 (1.001-1.035); Urine WBC 5 /hpf (0 - 3)
[2018-12-31] MEDS ORDERED: SODIUM CHLORIDE 0.9% 1,000 ML IVB ONE (11:26)
[2018-12-31] MEDS ORDERED: ONDANSETRON HCL 4 MG/2 ML VIAL IV ONE (11:30)
[2018-12-31 11:48] LABS: Magnesium 1.8 mg/dL (1.6-2.6)
[2018-12-31 12:05] LABS: INR 1.18 (0.9-1.15); Partial Thromboplastin Time 29.2 sec (23.64-32.05)
[2018-12-31] MEDS ORDERED: cefTRIAXone 1GM/50ML D5W 50 ML IV ONE (13:45)
[2018-12-31] MEDS ORDERED: MORPHINE SULF INJ 2 MG/ML SYRINGE 1ML IV PRN ×2 (15:30)
[2018-12-31] MEDS ORDERED: NITROGLYCERIN 0.4 MG SL TAB SL PRN (15:30)
[2018-12-31] MEDS ORDERED: HYDROcodone-ACET 5/325MG TAB PO PRN (15:30)
[2018-12-31] MEDS ORDERED: ACETAMINOPHEN 500 MG TAB PO PRN (15:30)
[2018-12-31] MEDS ORDERED: ONDANSETRON HCL 4 MG/2 ML VIAL IV PRN (15:30)
[2018-12-31 15:51] LABS: CRP High Sensitivity 17.1 mg/dL (< 0.3)
[2018-12-31] MEDS: SOD CHL 0.9%/ KCL 20MEQ 1,000 ML IV SCH (16:00)
[2018-12-31 21:00] VITALS: BP 104/66
[2018-12-31] MEDS: FAMOTIDINE (10MG/ML) 2ML VL IV SCH (22:17)
[2018-12-31] MEDS: metroNIDAZOLE 500MG/100ML 100 ML IV SCH (22:18)
[2019-01-01] VITALS (7 sets, daily range): BP systolic 90–126; BP diastolic 52–68
[2019-01-01] MEDS: SOD CHL 0.9%/ KCL 20MEQ 1,000 ML IV SCH ×3 (01:30→23:44)
[2019-01-01] MEDS: metroNIDAZOLE 500MG/100ML 100 ML IV SCH ×3 (06:22→23:03)
[2019-01-01 06:27] LABS: Basophils # (auto) 0 uL; Basophils % (auto) 0.1 % (0.0-2.0); Eosinophils # (auto) 0.3 uL; Eosinophils % (auto) 3.3 % (0.0-7.0); Hematocrit 45.4 % (41.0-53.0); Hemoglobin 15.7 g/dL (13.5-17.5); Lymphocytes # (auto) 0.7 uL; Lymphocytes % (auto) 6.6 % (10.0-50.0); Mean Corpuscular Hgb Conc. 34.6 g/dL (32.0-36.0); Mean Corpuscular Volume 98.3 fL (80.0-100.0); Monocytes # (auto) 0.3 uL; Monocytes % (auto) 2.9 % (0.0-12.0); Neutrophils # (auto) 9.2 uL; Neutrophils % (auto) 87.1 % (37.0-80.0); Platelet Count (auto) 120 10^3/uL (140-450); Red Blood Cells 4.62 10^6/uL (4.5-5.90); Red Cell Distribution Width 13.3 % (11.8-14.3); White Blood Cell 10.5 10^3/uL (4.4-10.8)
[2019-01-01 06:40] LABS: Albumin 3.1 g/dL (3.4-5.0); BUN/Creatinine Ratio 12.8; Calcium 8.3 mg/dL (8.5-10.1); Potassium 3.6 mmol/L (3.5-5.1)
[2019-01-01 06:51] LABS: Bilirubin, Total 1.3 mg/dL (0.2-1.0); Total Protein 6.4 g/dL (6.4-8.2)
--- NOTE | 2019-01-01 07:30 | NUR ---
Opening Shift Note Assumed care of patient, awake and alert. No S/S of distress/SOB or pain. Instructed on POC and to call for assist PRN, will continue to monitor for changes Q1hr and PRN.
[2019-01-01] MEDS: cefTRIAXone 1GM/50ML D5W 50 ML IV SCH (09:02)
[2019-01-01 11:13] LABS: Urine Bacteria NONE SEEN /hpf (None Seen); Urine Blood 1+ /uL (Negative); Urine Specific Gravity 1.015 (1.001-1.035); Urine WBC <1 /hpf (0 - 3)
[2019-01-01] MEDS ORDERED: ASPirin 81 mg TAB PO ONE (14:00)
--- NOTE | 2019-01-01 19:30 | NUR ---
Opening Shift Note Assumed care of patient, awake and alert. No S/S of distress/SOB or pain. Updated on POC and to call for assist PRN, patient verbalized understanding, call light within reach, will continue to monitor for changes Q1hr and PRN.
--- NOTE | 2019-01-01 22:00 | NUR ---
IV insertion IV access obtained, via clean sterile technique by inserting 22 gauge catheter at RFA after [1] attempt(s). IV secured properly. No trauma to site. Patient tolerated well. NOTE: []
[2019-01-01] MEDS: FAMOTIDINE (10MG/ML) 2ML VL IV SCH (23:03)
[2019-01-02 04:56] VITALS: BP 110/64
[2019-01-02] MEDS: metroNIDAZOLE 500MG/100ML 100 ML IV SCH ×3 (05:58→21:08)
[2019-01-02 08:57] VITALS: BP 107/55
--- NOTE | 2019-01-02 09:20 | NUR ---
Hospitalist at bedside MD Fletcher at bedside, aware of patient's status including abnormal labs vs. Awaiting cardio consult from Dr Nunez at this time. Cont care
[2019-01-02] MEDS: SOD CHL 0.9%/ KCL 20MEQ 1,000 ML IV SCH ×2 (09:34→17:30)
[2019-01-02] MEDS: cefTRIAXone 1GM/50ML D5W 50 ML IV SCH (09:34)
[2019-01-02] MEDS: FAMOTIDINE (10MG/ML) 2ML VL IV SCH ×2 (09:35→21:07)
[2019-01-02] MEDS: ASPirin 81 mg TAB PO SCH (09:35)
[2019-01-02 14:48] VITALS: BP 105/62
[2019-01-02 17:22] VITALS: BP 124/68
--- NOTE | 2019-01-02 19:04 | NUR ---
Patient care endorsed endorsed care to Precious russell. Patient sitting up in bed in no acute distress or sob noted. Call light within reach.
--- NOTE | 2019-01-02 19:30 | NUR ---
Opening Shift Note Assumed care of patient, awake and alert. Family member at bedside. No S/S of distress/SOB or pain. Updated on POC and to call for assist PRN, patient verbalized understanding, call light within reach, will continue to monitor for changes Q1hr and PRN.
[2019-01-02 21:52] VITALS: BP 124/64
[2019-01-02] MEDS ORDERED: FAMOTIDINE (10MG/ML) 2ML VL IV SCH ×2 (22:00)
[2019-01-03] MEDS: SOD CHL 0.9%/ KCL 20MEQ 1,000 ML IV SCH (03:30)
[2019-01-03] MEDS: metroNIDAZOLE 500MG/100ML 100 ML IV SCH (06:00)
--- NOTE | 2019-01-03 08:30 | NUR ---
Hospitalist at bedside MD Fletcher at bedside, new order for environmental adviser Dr Devries. Consult called in to Dr Devries per Dr Fletcher he will come see the patient.
[2019-01-03 09:00] VITALS: BP 111/60
--- NOTE | 2019-01-03 09:37 | NUR ---
Cardio at bedside Janey SUPERVISOR [employer] at bedside for Cardio, awaiting orders
[2019-01-03] MEDS: FAMOTIDINE (10MG/ML) 2ML VL IV SCH ×2 (09:52→21:40)
[2019-01-03] MEDS: ASPirin 81 mg TAB PO SCH (09:53)
[2019-01-03] MEDS ORDERED: CARVEDILOL 3.125 MG TAB PO ONE (10:15)
[2019-01-03 13:00] VITALS: BP 120/65
--- NOTE | 2019-01-03 16:07 | NUR ---
Spoke to hospitalist regarding echo MD Fletcher aware of echo results and [employer] Conveyor Tender recommendation for dc after echo is done and EF is 50% or greater. Per MD Fletcher he will dc patient tomorrow morning. Patient made aware and verbalized understanding. Cont care
[2019-01-03 17:00] VITALS: BP 123/71
--- NOTE | 2019-01-03 19:30 | NUR ---
Opening Shift Note Assumed care of patient, awake and alert. No S/S of distress/SOB or pain. Bed locked in lowest position, side rails upx2, call light within reach. Instructed on POC and to call for assist PRN, will continue to monitor for changes Q1hr and PRN.
[2019-01-03] MEDS: CARVEDILOL 3.125 MG TAB PO SCH (21:43)
[2019-01-03 22:00] VITALS: BP 120/68
[2019-01-04 06:00] VITALS: BP 117/65
[2019-01-04 09:00] VITALS: BP 125/63
--- NOTE | 2019-01-04 09:28 | NUR ---
Hospitalist at bedside MD Fletcher at bedside, spoke to patient in detail regarding f/u instructions including instructions, use s/e of prescribed meds. Patient instructed to hold Coreg if HR>50bpm patient verbalized understanding. New orders received for dc home today. Will dc as ordered. Off work note obtained and will be given to patient.
[2019-01-04] MEDS: CARVEDILOL 3.125 MG TAB PO SCH (10:09)
[2019-01-04] MEDS: ASPirin 81 mg TAB PO SCH (10:09)
[2019-01-04] MEDS: FAMOTIDINE (10MG/ML) 2ML VL IV SCH (10:09)
[2019-01-04 13:00] VITALS: BP 127/77
--- NOTE | 2019-01-04 13:04 | NUR ---
Discharge instructions given as ordered. Encourage to follow up with PMD and Membership Director as instructed. All questions and concerns addressed. Patient verbalized understanding. Medication reconciliation form completed and copy given to patient. IV removed with catheter intact, pressure dressing applied. Telemetry unit returned to ICU and Tasha was notified to pick it up. Tele#[id number]. Patient awaiting pickling operator from family at this time. No distress noted at this time, sob or pain.
--- NOTE | 2019-01-04 13:40 | NUR ---
Patient ambulated to vehicle pt refused wheelchair, ambulated independently down to lob where he states his ride is waiting for him. Patient ambulated with all personal belongings in no acute distress or sob.
== END 2019-01-04 13:40 | disposition home or self-care (01) | DRG 391 ==
LOC: ER 09:57 → TELE 09:58 → TELE-EAST 18:34
PROVIDERS: ADMIT Nurse Practitioner Acute Care; ATTEND Family Medicine
DX: A05.9 Bacterial foodborne intoxication, unspecified (principal); N17.0 Acute kidney failure with tubular necrosis; N30.00 Acute cystitis without hematuria; E78.00 Pure hypercholesterolemia, unspecified; E78.5 Hyperlipidemia, unspecified; E86.0 Dehydration; F17.210 Nicotine dependence, cigarettes, uncomplicated; I10 Essential (primary) hypertension; I25.10 Atherosclerotic heart disease of native coronary artery without angina pectoris; I70.8 Atherosclerosis of other arteries; K43.9 Ventral hernia without obstruction or gangrene; F32.9 Major depressive disorder, single episode, unspecified; I25.2 Old myocardial infarction; Z79.82 Long term (current) use of aspirin; Z82.0 Family history of epilepsy and other diseases of the nervous system; Z82.49 Family history of ischemic heart disease and other diseases of the circulatory system; Z83.3 Family history of diabetes mellitus; Z90.49 Acquired absence of other specified parts of digestive tract; Z79.899 Other long term (current) drug therapy; Z71.6 Tobacco abuse counseling
CPT/HCPCS: 36415; 71045; 74176; 80053; 81001; 82150; 83690; 83735; 84484; 85025; 85610; 85652; 85730; 86141; 87045; 87493; 87899; 93005; 93306; 94761; 96361; 96365; 96375; G0378; J0696; J2405; J3490